=== PATIENT | male | born 1935 | race Caucasian/White ===

== ENCOUNTER 2025-03-16 08:49 | Emergency (ER) | payer MEDICARE, SELFPAY ==
--- NOTE | ~2025-03-16 | XR_ITS ---
XR lumbar spine 2-3V 03/16/2025 10:00 Indication: Status post fall. Hip pain. Procedure: 4 views lumbar spine Comparison: No prior studies for comparison. Findings: There is levoscoliosis. There are compression fractures of T8, T10, L1, L3 and L5, all like ly chronic. There is disc narrowing at L2-3 through L5-S1. There is multilevel facet hypertrophy most severe at L4-5 and L5-S1. There is levoscoliosis. Sacral foramen are symmetric. 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 2: Severe lumbar spondylosis with levoscoliosis. Reviewed, dictated and finalized at location B. Impression: 1: Multiple compression fractures of the lower thoracic and lumbar spine, likel y chronic. 2: Severe lumbar spondylosis with levoscoliosis.
--- NOTE | ~2025-03-16 | XR_ITS ---
XR hip LT 2V w AP pelvis 03/16/2025 10:00 Indication: Left hip pain Procedure: 3 views left hip Comparison: No prior studies for comparison. Findings: There is moderate osteoarthritis of the hips. Pelvic rings intact. There is lower lumbar sp ondylosis. No acute fracture or traumatic malalignment. Osteopenia. Sacral foramen are symmetric. Impression: 1: Moderate osteoarthritis of the hips. 2: No acute fracture. Reviewed, dictated and finalized at location B. Impression: 1: Moderate osteoarthritis of the hips. 2: No acute fracture.
--- OUTSIDE RECORDS SUMMARY | 2025-03-16 08:57 | XMS_ITS | Referral Summary ---
Author Organization [facility] Address [address] [place] [id number] Care Team Providers Care Histopathology Technician Name Role Phone Magdalena Mrash Primary Care Provider [phone] Williams Alexandra MD Unavailable [phone] Allergies No known active allergies Medications aspirin 81 mg enteric coated tablet Take 1 tablet (81 mg total) by mouth daily Active fexofenadine (NESHA) 60 mg tablet Take 1 tablet (60 mg total) by mouth daily 02/01/2017 Active omega-3 fatty acids-fish oil 300-1,000 mg capsule Take by mouth Active lisinopriL (PRINIVIL,ZESTR IL) 10 mg tablet Take 1 tablet (10 mg total) by mouth daily 12/29/2022 Active polydextrose (Childrens Fiber Gummy Bear) 1.5 gram tablet,chewable Take by mouth daily 06/14/2022 Active multivitamin-Ca -iron-minerals tablet Take 1 tablet by mouth daily 01/16/2015 Active tamsulosin (FLOMAX) 0.4 mg extended release capsule TAKE 1 CAPSULE BY MOUTH EVERYDAY AT BEDTIME 12/29/2022 Active coenzyme Q10 10 mg capsule Take by mouth daily Active cyanocobalamin (Vitamin B-12) 1,000 mcg tablet Take 0.5 tablets (500 mcg total) by mouth daily Active cholecalciferol (VITAMIN D-3) 2000 unit capsule Take 1 capsule (2,000 Units total) by mouth daily 06/14/2022 Active atorvastatin (LIPITOR) 40 mg tablet TAKE 1 TABLET BY MOUTH EVERY DAY 90 tablet 1 09/24/2024 Active Active Problems Problem Noted Date Diagnosed Date 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 03/11/2023 Essential hypertension 03/11/2023 Hyperlipidemia 03/11/2023 Social History Tobacco Use Types Packs/Day Years Used Date Smoking Tobacco: Former Cigarettes Q uit: 1965 Smokeless Tobacco: Never Tobacco Cessation:Counseling Given: Not Answered Personal Safety Answer Date Recorded Getting School Help Needed Not on file 11/27 Sex and Gender Information Value Date Recorded Sex Assigned at Not on file 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 Gender Identity Not on file Sexual Orientation Not on file Last Filed Vital Signs Vital Sign Reading Time Taken Comments Blood Pressure 108/67 05/18/2024 1:36 PM CDT Pulse 76 05/18/2024 1:36 PM CDT Temperature 36.5 C (97.7 F) 05/18/2024 1:36 PM CDT Respiratory Rate 18 05/18/2024 1:36 PM CDT Oxygen Saturation 96% 05/18/2024 1:36 PM CDT Inhaled Oxygen Concentration - - Weight 85.3 kg (188 lb) 05/18/2024 1:36 PM CDT Height 175.3 cm (5' 9) 03/09/2024 1:03 PM CDT Body Mass Index 27.76 03/09/2024 1:03 PM CDT Plan of Treatment Not on file Insurance MEDICARE [facility] SUPPLEMENT ZULLY DUGGAN [id number] [facility] MCR SUPPLEMENT URBANZULLY [id number] MEDICARE [facility] MCR SUPPLEMENT Care Teams Histopathology Technician Relationship Specialty Start Date End Date Magdalena Marsh PA PCP - General Physician Wind Plant Manager 01/20/23 Williams Alexandra MD [address] [place] [address] Referring Physician Medical Oncology 05/04/24
--- OUTSIDE RECORDS SUMMARY | 2025-03-16 08:57 | XMS_ITS | Encounter Summary ---
Author Organization [facility] Address [address] [place] [address] Phone Care Team Providers Care Cash Shortage Investigator Name Role Phone Magdalena Marsh [facility] Primary Care Provider [phone] Wililams Alexandra MD Unavailable [phone] Katie Casas RN Unavailable Unavailable Gladys Javier RN Unavailable Unavailable Encounter Details Date Type Department Care Team (Late Contact Info) Description 06/08/2024 Telephone [facility] [address] [phone] Williams Alexandra MD [address] [place] [phone] Social History Tobacco Use Types Packs/Day Years Used Date Smoking Tobacco: Never Smokeless Tobacco: Never Alcohol Use Standard Drinks/Week Comments Not Asked 0 (1 standard drink = 0.6 oz pur e alcohol) PHQ-2 Answer Date Recorded Total Score - Questions 1-9 0 12/01 Sex and Gender Information Value Date Recorded Sex Assigned at Not on file 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 Gender Identity Not on file Sexual Orientation Not on file documented as of this encounter Plan of Treatment Upcoming Encounters Date Type Department Care Team (Late Contact Info) Description 04/11/2025 12:00 PM CDT Clinical Support [facility] [id number] [address] 05/09/2025 1:30 PM CDT Office Visit [facility] [id number] [phone] Williams Alexandra MD [address] [place] [phone] documented as of this encounter Visit Diagnoses Not on filedocumented in this encounter Additional Health Concerns Assessment Noted Time PHQ-9 Depression Total Score: 0 12/19/19 21 1:17 PM CDT documented as of this encounter Care Teams Cash Shortage Investigator Relationship Specialty [place] [address] [place] [address] PCP - General Physician Timing Inspector 01/05/23 Williams Alexandra MD [address] [place] [address] Consulting Physician Oncology 01/05/23 Katie Casas, RN ND Oncology Nurse Navigator Oncology 05/23/24 Gladys Javier, NELA ND Oncology Nurse Navigator Oncology 08/31/24 documented as of this encounter
--- OUTSIDE RECORDS SUMMARY | 2025-03-16 08:57 | XMS_ITS | Clinical Summary ---
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 Essential hypertension 03/11/2023 Hyperlipidemia 03/11/2023 Surgical History Surgery Date Site/Laterality Comments CATARACT EXTRACTION, BILATERAL Medical History Medical History Date Comments Hyperlipidemia Family History Medical History Relation Name Comments Cancer Brother 1 Prostate cancer Brother 2 Heart failure Father Stroke Mother Relation Name Status Comments Brother 1 Brother 2 Alive Father Mother Social History Tobacco Use Types Packs/Day Years Used Date Smoking Tobacco: Former Cigarettes Q uit: 1965 Smokeless Tobacco: Never Tobacco Cessation:Counseling Given: Not Answered Personal Safety Answer Date Recorded Getting School Help Needed Not on file 11/27 Sex and Gender Information Value Date Recorded Sex Assigned at Not on file 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 Gender Identity Not on file Sexual Orientation Not on file Obstetrics History Last Filed Vital Signs Vital Sign Reading [...] 03/09/2024 1:03 PM CDT Plan of Treatment Health Maintenance Due Date Last Done Comments Depression Screening 1935 Fall Risk Assessment 1935 Hepatitis B Screening 1953 Well Visit 65+ 2002 DTaP/Tdap/Td Vaccine (1 - Tdap) 01/23/2021 Pneumococcal vaccine 65+ (2 of 2 - PCV) 03/05/2022 03/05/2021 Covid-19 Vaccine (2023-2 5 season) 2024 08/17/2022, 02/06/2022, 07/28/2021, Additional history exists Influenza Vaccine (Season Ended) 2025 08/04/2022, 07/18/2021, 06/27/2020, Additional history exists Zoster Vaccine Completed 11/21/2019, 07/28/2019 Insurance MEDICARE [facility] SUPPLEMENT MEDICARE [facility] SUPPLEMENT ZULLY DUGGAN [id number] MEDICARE [facility] Address: [address] [address] [place] [address] [facility] SUPPLEMENT ZULLY DUGGAN [id number] Care Teams Tire Vulcanizer Relationship Specialty Start Date End Date Magdalena Marsh PA PCP - General Physician Behavioral Instructor 01/20/23 Williams Alexandra MD [address] [place] [phone] Referring Physician Medical Oncology 05/04/24
--- OUTSIDE RECORDS SUMMARY | 2025-03-16 08:57 | XMS_ITS ---
Author Organization [facility] Address [address] [place] [address] Phone Care Team Providers Care Health And Physical Education Teacher Name Role Phone Magdalena Marsh PAC Primary Care Provider Williams Alexandra MD Unavailable [phone] Katie Casas RN Unavailable Unavailable Gladys Javier RN Unavailable Unavailable Active Problems Patient Care Coordination No te Formatting of this note migh t be different from the original. 05/17/24 PCM CONSENT CARE PLAN LAST UPDATED: 02/20/2025 CARE PLAN LAST DELIVERED: 09-13-24, 02/20/25 PT DECLINED COPY For additional billing time breakdown, see [employer] auditing report. 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
--- OUTSIDE RECORDS SUMMARY | 2025-03-16 08:57 | XMS_ITS | Clinical Summary ---
Author Organization [facility] Address [address] [place] [address] Phone Care Team Providers Care Packer Denture Name Role Phone Magdalena Marsh Primary Care Provider [phone] Williams Alexandra MD Unavailable [phone] Katie Casas RN Unavailable Unavailable Gladys Javier RN Unavailable Unavailable Allergies No known active allergies Medications Cyanocobalamin (VITAMIN B 12 PO) Take 1,000 mg by mouth. Active Coenzyme Q10 (COQ-10) 100 MG Capsule Take by mouth. Activ e Aspirin 81 MG Tablet Take 81 mg by mouth daily. Active Multiple Vitamins-Mineral s (MULTIVITAMIN PO) Take by mouth. Activ e fexofenadine (NESHA) 60 MG Tablet Take 1 Tablet by mouth. 7 Active tamsulosin (FLOMAX) 0.4 MG Capsule TAKE 1 CAPSULE BY MOUTH EVERYDAY AT BEDTIME 3 Active atorvastatin (LIPITOR) 40 MG Tablet Take 40 mg by mouth daily. Active ondansetron (ZOFRAN) 4 MG TabletIndication s:NK/T-cell lymphoma, unspecified type (HCC) Take 1 Tablet by mouth every 6 hours as needed for Nausea - 1st line. 30 Tablet 3 4 Active Additional Information Patient not taking.Reported on 03/07/2025 prochlorperazine (COMPAZINE) 10 MG TabletIndication s:NK/T-cell lymphoma, unspecified type (HCC) Take 1 Tablet by mouth every 4 hours as needed for Nausea - 2nd line. 30 Tablet 3 4 Active Additional Information Patient not taking.Reported on 03/07/2025 cyclophosphamide (CYTOXAN) 50 MG CapsuleIndicatio ns:NK/T-cell lymphoma, unspecified type (HCC) Take 2 Capsules by mouth every morning Swallow capsules whole. 60 Capsule 5 5 Active albuterol 108 (90 Base) MCG/ACT Aerosol Solution take 2 Puffs by inhalation. 5 Active multi-vitamins (Multi-Vitamin) Tablet Take 1 Tablet by mouth. 5 Active fish oil-omega-3 fatty acids 1000 MG Capsule Take 1,000 mg by mouth. Active acetaminophen (TYLENOL) 650 MG Tablet Controlled Release Take 650 mg by mouth every 6 hours as needed. Active Active Problems Patient Care Coordination No te Formatting of this note migh t be different from the original. 05/17/24 PCM CONSENT CARE PLAN LAST UPDATED: 02/20/2025 CARE PLAN LAST DELIVERED: 09-13-24, 02/20/25 PT DECLINED COPY For additional billing time breakdown, see [facility] auditing report. 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 Polycythemia 09/11/2015 Encounters Date Type Department Care Team Description 03/14/2025 12:45 PM CDT Clinical Support [facility] [address] [phone] Nurse, Cc [place] NK/T-cell lymphoma, unspecified type (HCC) (Primary Dx) 03/14/2025 Travel 03/07/2025 1:30 PM CDT Lab [facility] [address] [facility] [address] [phone] Nurse, Cc [place] Polycythemia (Primary Dx) 03/07/2025 1:00 PM CDT Office Visit [facility] [address] [facility] [address] [phone] Williams Alexandra MD Polycythemia (Primary Dx); Eosinophilia, unspecified type 03/07/2025 Travel 03/04/2025 3:15 PM CDT Clinical Support [facility] [address] [phone] Navigator, Annalise Ramírez Nurse NK/T-cell lymphoma, unspecified type (HCC) (Primary Dx) 02/20/2025 9:00 AM CDT Care Management [facility] [address] [phone] Navigator, Annalise Ramírez Nurse Care Management (WELLNESS F/U & CAREPLAN REVIEW) 02/14/2025 11:00 AM CDT Clinical Support [facility] [address] [phone] Nurse, Cc [place] NK/T-cell lymphoma, unspecified type (HCC) (Primary Dx) 02/14/2025 Travel 02/11/2025 Telephone [facility] [address] [phone] Williams Alexandra MD 01/31/2025 2:30 PM CDT Clinical Support [facility] [address] [phone] Navigator, Annalise Ramírez Nurse NK/T-cell lymphoma, unspecified type (HCC) (Primary Dx) 01/29/2025 9:00 AM CDT Care Management [facility] [address] [phone] Navigator, Cc [place] Nurse Care Management (WELLNESS F/U) 01/15/2025 8:45 AM CDT Care Management [facility] [address] [phone] Navigator, Cc [place] Nurse Care Management (WELLNESS F/U & CAREPLAN REVIEW) 01/10/2025 1:15 PM CDT Clinical Support [facility] [address] [place] [address] NK/T-cell lymphoma, unspecified type (HCC) (Primary Dx) 01/10/2025 1:00 PM CDT Office Visit [facility] [address] [place] [address] Williams Alexandra MD NK/T-cell lymphoma, unspecified type (HCC) (Primary Dx) 01/10/2025 Travel 01/03/2025 Telephone [facility] [address] [phone] Williams Alexandra MD [facility] Call / Skin cancer treatment 01/01/2025 3:30 PM CDT Clinical Support [facility] [address] [phone] Navigator, Cc [place] Nurse NK/T-cell lymphoma, unspecified type (HCC) (Primary Dx) 12/31/2024 11:00 AM CDT Care Management [facility] [address] [phone] Navigator, Cc [place] Nurse Care Management (WELLNESS F/U) 12/26/2024 8:15 AM CDT Care Management [facility] [address] [phone] Navigator, Cc [place] Nurse Care Management (WELLNESS F/U) 12/14/2024 9:00 AM CDT Clinical Support [facility] [address] [facility] [address] [place] [phone] Nurse, Annalise Vinson NK/T-cell lymphoma, unspecified type (HCC) (Primary Dx) from Last 3 Months Immunizations Immunization Administration Dates Next Due Covid-19, Mrna, Lnp-s, Pf, 1 00 Mcg Or 50 Mcg Dose (MODERNA) 10/28/2020,09/30/2020 Influenza Vaccine 07/10/2013 Influenza, High-dose, Quadrivalent 07/28/2019 Influenza, Recombinant, Quadrivalent,injectable, Pf 06/27/2020 Influenza, Seasonal, Injectable, Undefined 07/12 Influenza, high-dose, trivalent, PF 07/28/2019 Zoster Vaccine Recombinant 11/21/2019,07/28/2019 Family History Medical History Relation Name Comments Cancer Brother lung Congenital Heart Disease Father Congestive Heart Failure Father Stroke Mother Elevated Lipids Other Relation Name Status Comments Brother Father Mother Other Social History Tobacco Use Types Packs/Day Years Used Date Smoking Tobacco: Never Smokeless Tobacco: Never Tobacco Cessation:Counseling Given: Not Answered Alcohol Use Standard Drinks/Week Comments Not Asked 0 (1 standard drink = 0.6 oz pur e alcohol) PHQ-2 Answer Date Recorded Total Score - Questions 1-9 0 12/01 Sex and Gender Information Value Date Recorded Sex Assigned at Not on file 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 Gender Identity Not on file Sexual Orientation Not on file Last Filed Vital Signs Vital Sign Reading Time Taken Comments Blood Pressure 130/68 03/07/2025 12:58 PM CDT Pulse 86 03/07/2025 12:58 PM CDT Temperature 36.7 C (98 F) 03/07/2025 12:58 PM CDT Respiratory Rate 16 03/07/2025 12:58 PM CDT Oxygen Saturation 97% 03/07/2025 12:58 PM CDT Inhaled Oxygen Concentration - - Weight 81.4 kg (179 lb 6.4 oz) 03/07/2025 12:58 PM CDT Height 175.3 cm (5' 9) 03/07/2025 12:58 PM CDT Body Mass Index 26.49 03/07/2025 12:58 PM CDT Plan of Treatment Upcoming Encounters Date Type Department Care Team (Late st Contact Info) Description 04/11/2025 12:00 PM CDT Clinical Support [facility] [address] [phone] 05/09/2025 1:30 PM CDT Office Visit [facility] [address] [place] [address] Williams Alexandra MD [address] [place] [address] Health Maintenance Due Date Last Done Comments Hepatitis C Virus (HCV) Screening 1935 TdaP Immunization 1935 SARS-COV-2 Immunization (8 - Moderna risk season) 2025 08/22/2024, 09/21/2023, 08/17/2022, Additional history exists Influenza Immunization (Season Ended) 2025 07/26/2023, 08/04/2022, 07/18/2021, Additional history exists Zoster Immunization Completed 11/21/2019, 9 DTaP/Tdap/Td Immunization Discontinued 01/22/2021 Pneumococcal Immunization (50+ years) Completed 06/29/2024, 07/26/2023, 03/05/2021 Pneumococcal Immunization Combined Discontinued 06/29/2024, 07/26/2023, 03/05/2021 Respiratory Syncytial Virus (RSV) Immunization (Adult) Completed 06/29/2024 Hepatitis B Immunization Aged Out No longer eligible based on patient's age to complete this topic Human Papillomavirus (HPV) Immunization Aged Out No longer eligible based on patient's age to complete this topic Meningococcal Immunization (ACWY) Aged Out No longer eligible based on patient's age to complete this topic Rotavirus Immunization Aged Out No lo nger eligible based on patient's age to complete this topic Procedures Procedure Name Priority Date/Time Associated Diagnosis Comments CMP (COMPREHENSIVE METABOLIC PANEL) Routine 02/14/2025 9:15 AM CDT NK/T-cell lymphoma, unspecified type (HCC) COMPLETE BLOOD COUNT (CBC) WITH DIFF Routine 02/14/2025 9:15 AM CDT NK/T-cell lymphoma, unspecified type (HCC) CCS-ACUTE LEUKEMIA PNL (NON-[place]) [place] B504-2 Routine 01/10/2025 3:57 PM CDT LACTATE DEHYDROGENASE (LD) Routine 01/10/2025 3:57 PM CDT NK/T-cell lymphoma, unspecified type (HCC) FOLIC ACID (FOLATE) Routine 01/10/2025 3 :57 PM CDT NK/T-cell lymphoma, unspecified type (HCC) FERRITIN Routine 01/10/2025 3:57 PM CDT NK/T-cell lymphoma, unspecified type (HCC) IRON W/ IRON BINDING CAPACITY [place] Routine 01/10/2025 3:57 PM CDT NK/T-cell lymphoma, unspecified type (HCC) RETICULOCYTE COUNT (RETIC) Routine 01/10/2025 3:57 PM CDT NK/T-cell lymphoma, unspecified type (HCC) VITAMIN B12 Routine 01/10/2025 3:57 PM CDT NK/T-cell lymphoma, unspecified type (HCC) COMPLETE BLOOD COUNT (CBC) WITH DIFF Routine 01/10/2025 3:57 PM CDT NK/T-cell lymphoma, unspecified type (HCC) CMP (COMPREHENSIVE METABOLIC PANEL) Routine 01/10/2025 3:57 PM CDT NK/T-cell lymphoma, unspecified type (HCC) from Last 3 Months Results * (ABNORMAL) CMP (COMPREHENSIVE METABOLIC PANEL) (02/14/2025 9:15 AM CDT) Only the most recent of2 resultswithin the time period is included. Glucose 105 70 - 105 mg/dL [facility] Blood Urea Nitrogen 15 7 - 25 mg/dL [facility] Creatinine 0.7 0.7 - 1.3 mg/dL [facility] Sodium 139 136 - 145 mEq/L [facility] Potassium 3.7 3.5 - 5.1 mEq/L [facility] Chloride 110(H) 98 - 107 mEq/L [facility] Bicarbonate 26 21 - 31 mEq/L [facility] Total Bilirubin 0.5 0.3 - 1.0 mg/dL [facility] Alk. Phosphatase 71 34 - 104 U/L [facility] Aspartate Aminotransferase 16 13 - 39 U/L [facility] Alanine Aminotransferase 13 7 - 52 U/L [facility] Total Protein 6.2(L) 6.4 - 8.9 g/dL [facility] Albumin 4.0 3.5 - 5.7 g/dL [facility] Calcium 9.4 8.6 - 10.3 mg/dL [facility] Anion Gap 6.7(L) 7.0 - 15.0 mEq/L [facility] Globulin 2.2 2.0 - 3.5 g/dL [facility] EGFR 89 >60 ml/min/1. 73m2 [facility] RN WOUND [facility] Comment: This eGFR is calculated using 2020 CKD-EPI Creatinine equation without race modifier based on the NKF-ASN task force recommendations Equation: dROP=128*min(SCr/k,1)a*max(SCr/k,1)-1.200*0.9938Age*1.012 (if female), where SCr is serum creatinine, k is 0.7 for females and 0.9 for males, and a is -0.241 for females and -0.302 for males Blood 02/14/2025 9:15 AM CDT Narrative [facility] - 02/15/2025 9:41 AM CDT Release to patient->Immediate IS THE PATIENT REQUIRED TO BE FASTING FOR 8 HOURS?->No Williams Alexandra MD CHEMISTRY ORDERABLES Final Result [facility] RN WOUND [facility] [place] [address], [place] [phone] * (ABNORMAL) COMPLETE BLOOD COUNT (CBC) WITH DIFF (02/14/2025 9:15 AM CDT) Only the most recent of2 resultswithin the time period is included. WBC 2.9(L) 4.0 - 10.0 10*3/uL [facility] RN [facility] HGB 12.1(L) 13.7 - 17.5 g/dL [facility] HCT 35.4(L) 40.1 - 51.0 % [facility] PLT 86(L) 163 - 369 10*3/uL [facility] MPV 11.5 9.4 - 12.4 fL [facility] RBC 2.98(L) 4.63 - 6.08 10*6/uL [facility] MCV 119(H) 79 - 95 fL [facility] MCH 40.6(H) 25.6 - 32.2 pg [facility] RN [facility] MCHC 34.2 32.2 - 36.5 g/dL [facility] RDW 16.2(H) 11.6 - 14.4 % [facility] RN [facility] Absolute Neutrophil Count 1,910 cells/uL [facility] ER SPECIALISTS [facility] Absolute Seg Count 1,910 1,440 - 6,600 cells/uL [facility] Absolute Lymph Count 285(L) 760 - 4,000 cells/uL [facility] Absolute [place] Count 428 160 - 1,200 cells/uL [facility] Absolute Eos Count 57 0 - 300 cells/uL [facility] Absolute Baso Count 114(H) 0 - 100 cells/uL [facility] Segmented Neutrophils 67(H) 36 - 66 % [facility] Lymphocytes 10(L) 19 - 40 % [facility]ER C ENTER [facility] Monocytes 15(H) 4 - 12 % CANCER SP TER SPECIALISTS [facility] Eosinophils 2 0 - 3 % [facility] C ENTER [facility]ISTS [facility] Basophils 4(H) 0 - 1 % [facility] SP TER [facility]ISTS [facility] Metamyelocytes 1 0 - 2 % CANCE R RN WOUND [facility] Myelocytes 1 0 - 2 % [facility] CE NTER SPECIALISTS [facility] WBC Estimate Low [facility]ER RN WOUND [facility] Platelet Estimate Low CA NCER RN WOUND OF [facility] RBC Morphology Abnormal [facility] R RN WOUND OF [facility] Macrocytosis 3+ CANCER RN WOUND OF [facility] Polychromasia 1+ CANCER RN WOUND OF [facility] Anisocytosis 1+ CANCER RN WOUND OF [facility] Poikilocytosis 1+ CANCE R RN WOUND OF [facility] Ovalocytes 1+ CANCER CE NTER SPECIALISTS [facility] Blood 02/14/2025 9:15 AM CDT Narrative [facility] RN WOUND [facility] - 02/15/2025 10:03 AM CDT Release to patient->Immediate us Williams Alexandra MD HEMATOLOGY ORDERABLES Final Result Performing Organization Address City/[facility] Co de Phone Number CANCER RN WOUND [facility] [address] [place] [address], [place] [phone] * (ABNORMAL) IRON W/ IRON BINDING CAPACITY [place] (01/10/2025 3:57 PM CDT) Pathologist [facility] IRON 49(L) 50 - 212 ug/dL [facility] RN WOUND [facility] UIBC 200 155 - 355 ug/dL [facility] RN WOUND [facility] TIBC 249(L) 261 - 478 ug/dl [facility] RN WOUND [facility] % Saturation 20 20 - 50 % [facility] RN WOUND [facility] 01/10/2025 3:57 PM CDT Narrative [facility] RN WOUND [facility] - 01/11/2025 9:14 AM CDT Release to patient->Immediate us Williams Alexandra MD LAB SEND OUTS Final Resul t CANCER RN WOUND [facility] [address] [place] [address], [place] [phone] * CCS-ACUTE LEUKEMIA PNL (NON-[place]) [place] B504-2 (01/10/2025 3:57 PM CDT) ACUTE LEUKEMIA FLOW PC Negative [facility] RN WOUND [facility] Comment: INTERPRETATION PERIPHERAL BLOOD: - Flow cytometric analysis does not show significant numbers of circulating blasts or an abnormal lymphoid or myeloid population. Lymphopenia is present. - No increase in NK cells is present, 0.15% of events (0.0039 k/ul). See comments. COMMENT The findings are similar to most recent prior. Correlation with other clinical and laboratory information is recommended. 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 There are no circulating blasts identified. Neutrophilsare relatively increased 90.72%) and do not display an aberrant phenotype. The orthogonal side scatter is normal. No significant number of CD56+ or CD10-/CD16- neutrophils is noted. Monocytes 3.15%) appear mature (CD14+/CD64+) and do not display overt phenotypic atypia. B-cells 0.13%) are polytypic. T-cells (3.52%) show no deletion or abnormal dim expression of currie-T-cell antigens on significant subset of cells. The CD7- T-cells are within normal range (<15%). The CD4:CD8 ratio is 1.26. The T-LGL cells comprise 0.96%. The NK cells are not increased, 0.15% DISCLAIMER: Antibodies Analyzed: CD19,CD20,CD22,CD10,CD11c,CD23,FMC7,[place],Lambda,CD2,CD3,CD4,CD5, CD7,CD8,CD56,CD57,CD11b,CD13,CD14,CD16,CD33,CD64,CD34,CD38,CD117, HLA-DR,CD45 - The technical component of Flow Cytometry was performed at [facility] [address] [place] [id number]. These tests were developed and their performance characteristics were determined by [facility]. They may not be cleared or approved by the U.S. Food and Drug Administration. The FDA has determined that such clearance or approval is not necessary. These results may be used for clinical, investigational or for research purposes, and should be interpreted with other relevant clinicopathologic data. FOOTNOTE: * See prior cases [id number] to [id number] ELECTRONIC SIGNATURE: Nathalia Toledo M.D. Hematopathologist, ex. [phone] This report was electronically signed. 01/10/2025 3:[address] [facility] - 01/14/2025 1:45 PM CDT Testing performed at: [employer]. [address] [place] [address], Skin Care Technician: Dr. Paul Montiel M.D.; Merged with [facility] Accn#:[id number] us Williams Alexandra MD PATHOLOGY/CYTOLOGY ORDERABL ES Final Result Performing Organization Address [facility] [place] [address], * VITAMIN B12 (01/10/2025 3:57 PM CDT) Pathologist [facility] Vitamin B12 380 180 - 914 pg/mL [facility] Blood 01/10/2025 3:[address] [facility] - 01/11/2025 2:35 PM CDT Release to patient->Immediate IS THE PATIENT REQUIRED TO BE FASTING FOR 8 HOURS?->No us Williams Alexandra MD CHEMISTRY ORDERABLES Final Result Performing Organization Address [facility] [place] [address], [place] [phone] * (ABNORMAL) RETICULOCYTE COUNT (RETIC) (01/10/2025 3:57 PM CDT) Pathologist [facility] Reticulocyte count 1.40 0.51 - 1.81 % [facility] RET-He 44.30(H) 28.20 - 36.60 pg [facility] Comment: RET-He is a direct assessment of incorporation of iron into erythrocyte hemoglobin. It provides an indirect measure of the iron available for new erythropoiesis over past 2-4 days. Blood 01/10/2025 3:57 PM CDT us Williams Alexandra MD HEMATOLOGY ORDERABLES Final Result Performing Organization Address [facility] Co de Phone Number CANCER RN WOUND [facility] [address] [place] [address], [place] [phone] * (ABNORMAL) LACTATE DEHYDROGENASE (LD) (01/10/2025 3:57 PM CDT) LDH 136(L) 140 - 271 U/L [facility] RN WOUND [facility] Blood 01/10/2025 3:57 PM CDT Narrative [facility] - 01/11/2025 9:14 AM CDT Release to patient->Immediate us Williams Alexandra MD CHEMISTRY ORDERABLES Final Result Performing Organization Address [facility] Co de Phone Number CANCER RN WOUND [facility] [place] [address], [place] [phone] * FOLIC ACID (FOLATE) (01/10/2025 3:57 PM CDT) Folate >20.00 >=5.90 ng/mL [facility] Blood 01/10/2025 3:57 PM CDT Narrative [facility] - 01/11/2025 2:35 PM CDT Release to patient->Immediate us Williams Alexandra MD CHEMISTRY ORDERABLES Final Result Performing Organization Address [facility] Co de Phone Number [facility]CER RN WOUND [facility] [address] [place] [address], [place] [phone] * (ABNORMAL) FERRITIN (01/10/2025 3:57 PM CDT) Ferritin 552(H) 24 - 336 ng/mL [facility] RN WOUND [facility] Blood 01/10/2025 3:57 PM CDT Narrative [facility]CER RN WOUND OF [facility] - 01/11/2025 2:35 PM CDT Release to patient->Immediate Williams Alexandra MD CHEMISTRY ORDERABLES Final Result [facility] RN WOUND [facility] [address] [place] [address], from Last 3 Months Insurance MEDICARE [facility] [employer] [id number] Advance Directives Documents on File Type Date Recorded 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
--- OUTSIDE RECORDS SUMMARY | 2025-03-16 08:57 | XMS_ITS | Encounter Summary ---
Author Organization [facility] Address [address] [place] [address] Phone Care Team Providers Care Mine Wirer Name Role Phone Magdalena Marsh [facility] Primary Care Provider [phone] Williams Alexandra MD Unavailable [phone] Katie Casas RN Unavailable Unavailable Gladys Javier RN Unavailable Unavailable Encounter Details Date Type Department Care Team (Late Contact Info) Description 06/19/2024 Telephone [facility] [address] [phone] Williams Alexandra MD [address] [place] [phone] Social History Tobacco Use Types Packs/Day Years Used Date Smoking Tobacco: Never Smokeless Tobacco: Never Alcohol Use Standard Drinks/Week Comments Not Asked 0 (1 standard drink = 0.6 oz pur e alcohol) PHQ-2 Answer Date Recorded Total Score - Questions 1-9 0 12/01 Sex and Gender Information Value Date Recorded Sex Assigned at Not on file 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 Gender Identity Not on file Sexual Orientation Not on file documented as of this encounter Plan of Treatment Upcoming Encounters Date Type Department Care Team (Late Contact Info) Description 04/11/2025 12:00 PM CDT Clinical Support [facility] [id number] [address] 05/09/2025 1:30 PM CDT Office Visit [facility] [id number] [address] Williams Alexandra MD [address] [place] [phone] documented as of this encounter Visit Diagnoses Not on filedocumented in this encounter Additional Health Concerns Assessment Noted Time PHQ-9 Depression Total Score: 0 12/19/19 21 1:17 PM CDT documented as of this encounter Care Teams Mine Wirer Relationship Specialty [place] [address] [place] [address] PCP - General Physician Shade Bander 01/05/23 Williams Alexandra MD [address] [place] [address] Consulting Physician Oncology 01/05/23 Katie Casas, RN [place] Oncology Nurse Navigator Oncology 05/23/24 Gladys Javier, NELA [place] Oncology Nurse Navigator Oncology 08/31/24 documented as of this encounter
--- OUTSIDE RECORDS SUMMARY | 2025-03-16 08:57 | XMS_ITS | Encounter Summary ---
Author Organization [facility] Address [address] [place] [address] Phone Care Team Providers Care Technical Account Manager Name Role Phone Magdalena Marsh [facility] Primary Care Provider [phone] Williams Alexandra MD Unavailable [phone] Katie Casas RN Unavailable Unavailable Gladys Javier RN Unavailable Unavailable Encounter Details Date Type Department Care Team (Late Contact Info) Description 04/20/2024 Telephone [facility] [address] [phone] Williams Alexandra MD [address] [place] [phone] Social History Tobacco Use Types Packs/Day Years Used Date Smoking Tobacco: Never Smokeless Tobacco: Never Alcohol Use Standard Drinks/Week Comments Not Asked 0 (1 standard drink = 0.6 oz pur e alcohol) PHQ-2 Answer Date Recorded Total Score - Questions 1-9 0 12/01 Sex and Gender Information Value Date Recorded Sex Assigned at Not on file 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 Gender Identity Not on file Sexual Orientation Not on file documented as of this encounter Plan of Treatment Upcoming Encounters Date Type Department Care Team (Late Contact Info) Description 04/11/2025 12:00 PM CDT Clinical Support [facility] [id number] [address] 05/09/2025 1:30 PM CDT Office Visit [facility] [address] [address] Williams Alexandra MD [address] [place] [phone] documented as of this encounter Visit Diagnoses Not on filedocumented in this encounter Additional Health Concerns Assessment Noted Time PHQ-9 Depression Total Score: 0 12/19/19 21 1:17 PM CDT documented as of this encounter Care Teams Technical Account Manager Relationship Specialty [place] [address] [place] [address] PCP - General Physician Motor Installer 01/05/23 Williams Alexandra MD [address] [place] [address] Consulting Physician Oncology 01/05/23 Katie Casas, RN [place] Oncology Nurse Navigator Oncology 05/23/24 Gladys Javier, NELA [place] Oncology Nurse Navigator Oncology 08/31/24 documented as of this encounter
[2025-03-16 09:02] VITALS: BP 118/87; PULSE 97; RESP 16; TEMP 36.7; O2SAT 91
--- NOTE | 2025-03-16 09:34 | ED_ITS ---
HPI - Back Pain/Injury General Chief Complaint: Back Pain/Injury Stated Complaint: Back Pain / Fall Time Seen by Provider: 03/16/25 08:51 Source: patient Mode of arrival: ambulatory Limitations: no limitations History of Present Illness HPI Narrative: Patient is 89-year-old male who presents to the clinic with his daughter for a fall from ground level yesterday around 3:00 p.m. Lost his balance while hanging clothes up in his closet and fell back on his left hip and coccyx. Denies hitting his head or LOC. Reports pain in his lumbar spine consistent, nonradiating and pain is 6/10 especially when he leans forward to get out of a chair and improves when lying down in bed. Denies any numbness, tingling, bowel or bladder incontinence or lower extremity weakness. History of compression fractures. Has a ankle brace on his left ankle. Related Data Home Medications ?Medication ?Instructions ?Recorded ?Confirmed ?Last Taken ?Type atorvastatin 40 mg tablet mg 03/16/25 Unknown History cyclophosphamide 50 mg capsule mg PO 03/16/25 Unknown History tamsulosin 0.4 mg capsule mg PO 03/16/25 Unknown History Allergies Allergy/AdvReac Type Severity Reaction Status Date / Time No Known Allergies Allergy Verified 03/16/25 08:59 Review of Systems Review of Systems: All systems reviewed & are unremarkable except as noted in HPI and below Constitutional: Constitutional: Denies body ache(s), Denies chills, Denies fatigue, Denies fever(s), Denies headache(s), Denies malaise and Denies weakness Eyes: Eyes: Denies blurry vision, Denies irritation and Denies loss of vision ENT: Denies otalgia, Denies headache(s), Denies nasal discharge, Denies sinus pain and Denies sore throat Cardiovascular: Cardiovascular: Denies chest pain, Denies irregular heart rhythm and Denies dyspnea Respiratory: Respiratory: Denies dyspnea Gastrointestinal: Gastrointestinal: Denies abdominal pain, Denies melena, Denies hematochezia, Denies diarrhea, Denies nausea and Denies vomiting Musculoskeletal: Musculoskeletal: Reports back pain, Denies myalgias and Denies arthralgias Integumentary/Breasts: Skin/Breast: Denies pruritus and Denies rash Neurologic: Denies headache(s), Denies loss of vision and Denies weakness Psychiatric: Psychiatric: Reports no additional psychiatric complaints Endocrine: Endocrine: Denies fatigue PMFSH Comments At time of signature, agree with nursing past medical, surgical, social and family history. There is no relevant family history pertinent to the presenting complaint. Exam Const: General: cooperative, healthy appearing, comfortable, no acute distress and well nourished Nutritional Appearance: well nourished Orientation/consciousness: patient oriented x3 Limitations: no limitations HENMT: Head: normal to inspection, normocephalic and atraumatic Ears: hearing grossly normal bilaterally and external ears normal Face/Nose/Sinus: Normal external nose present, normal facial exam and face symmetric Face and sinus: normal facial exam and face symmetric Mouth: Yes lip normal Eyes: General: appearance normal, both eyes and all related structures Alignment and Position: alignment normal and position normal Periorbital: periorbital findings normal Eyelids: eyelids normal Pupils: Equal, round and reactive pupils present EOM: EOMs intact bilaterally Neck: Neck: normal visual inspection, full ROM, no lymphadenopathy and supple Chest: Chest palpation & inspection: normal inspection of the chest Resp: Effort & Inspection: normal respiratory effort and able to speak in complete sentences Auscultation: clear to auscultation bilaterally Cardio: Rate: regular rate Rhythm: regular rhythm Heart sounds: S1 normal heart sound present and S2 normal heart sound present GI: Inspection: normal to inspection Back/Spine/Pelvis: Back: no CVA tenderness, No erythema and No ecchymosis Cervical Spine: No Cervical spine tenderness Thoracic/Lumbar Spine: straight leg raise negative bilaterally, No paraspinal muscle tenderness, No thoracic spinal tenderness and lumbar spinal tenderness Pelvis: no buttock tenderness Skin: General skin exam: normal color and no rashes or lesions noted Neuro: General: patient oriented x3 and moves all extremities Cranial nerves: Yes Equal, round and reactive pupils present Cognition (Neuro): normal cognition Speech: normal speech Gait exam (Neuro): Normal gait present Motor exam (neuro): 5/5 motor strength present throughout, Normal motor muscle tone present throughout and Motor abnormalities not present Sensory Exam: normal sensation Extrem: General: normal to inspection, full ROM and no edema Left lower extremity: hip/thigh Details: tenderness Location: of the hip Location: laterally and of the proximal upper leg Location: laterally and normal ROM; no swelling, no abrasions, no ecchymosis and no deformity Psych: Appearance: grossly normal and well kempt Mental Status: mental status grossly normal Speech and movement: Normal speech and movement present Affect: normal affect Attitude: cooperative Thought process: Normal thought process present Course Course Emergency Course: Patient is aware of diagnosis, understands and agrees to treatment plan. Anticipatory guidance given. Patient agrees to follow-up as directed and is aware of reasons to seek care at the emergency department. Portions of this record may have been created with voice recognition software Level of Care: Express Care Visit Vital Signs Vital signs: Vital Signs Temperature 36.7 C 03/16/25 09:02 Pulse Rate 97 03/16/25 09:02 Respiratory Rate 16 03/16/25 09:02 Blood Pressure 118/87 03/16/25 09:02 Pulse Oximetry 91 03/16/25 09:02 Oxygen Delivery Room Air 03/16/25 09:02 Temperature 36.7 C 03/16/25 09:02 Pulse Rate 97 03/16/25 09:02 Respiratory Rate 16 03/16/25 09:02 Blood Pressure 118/87 03/16/25 09:02 Pulse Oximetry 91 03/16/25 09:02 Oxygen Delivery Room Air 03/16/25 09:02 Reviewed MDM - Back Pain/Injury MDM Narrative Medical decision making narrative: Pt well hydrated appearing, in no respiratory distress, hemodynamically stable. Recommend supportive care. The patient is stable at time of discharge the clinical impression was discussed and the patient was given the opportunity to ask questions, which were addressed as completely as possible given the information available at present. Anticipatory guidance and return to care precautions were discussed and the importance of primary care follow-up was stressed and encouraged. The patient voiced understanding of the plan, indications to return, and the need for follow-up. Exam findings show no acute concerns or changes Patient is appropriate for outpatient treatment and follow-up. Differential Diagnosis Differential diagnosis: Likely lumbar radiculopathy, sciatica, strain of lumbar region and other (Fall injury, contusion, hip fracture, and lumbar compression fractures) Imaging Data Radiologist's impression: XR hip LT 2V w AP pelvis 03/16/2025 10:00 Indication: Left hip pain Procedure: 3 views left hip Comparison: No prior studies for comparison. Findings: There is moderate osteoarthritis of the hips. Pelvic rings intact. There is lower lumbar spondylosis. No acute fracture or traumatic malalignment. Osteopenia. Sacral foramen are symmetric. Impression: 1: Moderate osteoarthritis of the hips. 2: No acute fracture. XR lumbar spine 2-3V 03/16/2025 10:00 Indication: Status post fall. Hip pain. Procedure: 4 views lumbar spine Comparison: No prior studies for comparison. Findings: There is levoscoliosis. There are compression fractures of T8, T10, L1, L3 and L5, all likely chronic. There is disc narrowing at L2-3 through L5- S1. There is multilevel facet hypertrophy most severe at L4-5 and L5-S1. There is levoscoliosis. Sacral foramen are symmetric. 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 2: Severe lumbar spondylosis with levoscoliosis. Discharge Plan Discharge Clinical Impression: Fall, Low back pain, Hip pain, left Patient Disposition: Home Condition: Stable Instructions: Fall Prevention for Older Adults (ED) Additional Instructions: X-ray show moderate osteoarthritis of hips, chronic compression fractures. No acute fractures You reported you fell.After any fall we expect you to be very sore over the next several days to 1 week. This is because your body was moved in different directions. Also sometimes people tense up during a fall. Either way, the muscles were strained after a fall and can be expected to be sore. This soreness is usually worse on the 2nd, 3rd and 4th days following a fall. Using Topicals such as biofreeze, bengay or aspercream will also help. Drink plenty of fluids and get plenty of rest to help your body heal. For pain, you may take: Tylenol 650-1000mg by mouth every 4-6 hours. Do not exceed 4000mg in 24 hours. Advil (Ibuprofen) 600 mg by mouth every 6 hours. Do not exceed 2400mg in 24 hours. 8 AM: Tylenol 11 AM: Ibuprofen 2 PM: Tylenol 5 PM: Ibuprofen 8 PM: Tylenol 11 PM: Ibuprofen 2 AM: Tylenol 5 AM: Ibuprofen Follow up with PCP in 7-10 days.Return to ER for problems. Patient Language: Monegasque Prescriptions: No Action atorvastatin 40 mg tablet tamsulosin 0.4 mg capsule PO cyclophosphamide 50 mg capsule PO Follow-up/Referrals: Jarvis,CAMRON Anderson [Primary Care Provider] - 3 Days Time of Disposition: 10:18
== END 2025-03-16 10:30 | disposition home or self-care (01) ==
PROVIDERS: Emergency Provider Nurse Practitioner Family; PCP Physician Assistant
DX: M54.50 Low back pain, unspecified (principal); M25.552 Pain in left hip; W19.XXXA Unspecified fall, initial encounter
CPT/HCPCS: 72100; 73502; 99204; G0463

== ENCOUNTER 2025-03-24 11:50 | Emergency (ER) | payer MEDICARE, SELFPAY ==
[2025-03-24 12:01] VITALS: BP 130/74; PULSE 75; RESP 18; TEMP 36.4; O2SAT 95
--- NOTE | 2025-03-24 12:01 | ED_ITS ---
HPI - Back Pain/Injury General Chief Complaint: Back Pain/Injury Stated Complaint: back pain/constipation Time Seen by Provider: 03/24/25 12:01 Source: patient, RN notes reviewed and old records reviewed Mode of arrival: ambulatory Limitations: no limitations History of Present Illness HPI Narrative: 89-year-old male presents to the [facility] with continued pain and concern for constipation. Patient states he has not had a bowel move in 4 days. Denies any nausea vomiting. Denies abdominal pain. Was able to eat breakfast without issue this morning. Presents with daughter and she states that he takes a half dose of MiraLax every day. Patient was seen and evaluated March 16 at this urgent care for a fall and back pain Patient was seen per daughter at [facility] urgent care on March 21 Has a follow-up with his primary care provider on the Related Data Home Medications ?Medication ?Instructions ?Recorded ?Confirmed ?Last Taken ?Type atorvastatin 40 mg tablet mg 03/16/25 Unknown History cyclophosphamide 50 mg capsule mg PO 03/16/25 Unknown History tamsulosin 0.4 mg capsule mg PO 03/16/25 Unknown History Allergies Allergy/AdvReac Type Severity Reaction Status Date / Time No Known Allergies Allergy Verified 03/24/25 12:04 Review of Systems Review of Systems: All systems reviewed & are unremarkable except as noted in HPI and below Constitutional: Constitutional: Reports no additional constitutional complaints Gastrointestinal: Gastrointestinal: Reports as per HPI, Reports change in bowel habits and Reports constipation Musculoskeletal: Musculoskeletal: Reports as per HPI Integumentary/Breasts: Skin/Breast: Reports system reviewed and no additional complaints, except as docu PMFSH Comments At the time of my signature, I reviewed and agree with the nursing past medical, surgical, social, and family history. There is no relevant family history pertinent to the patient complaint. Exam Const: General: cooperative, no acute distress, well developed, alert, ill appearing chronically and well nourished Nutritional Appearance: well nourished and obese Orientation/consciousness: patient oriented x3 Limitations: no limitations HENMT: Head: normal to inspection Eyes: General: appearance normal, both eyes and all related structures Alignment and Position: alignment normal Neck: Neck: normal visual inspection, full ROM, no lymphadenopathy and no meningeal signs Chest: Chest palpation & inspection: normal inspection of the chest Resp: Effort & Inspection: normal respiratory effort and able to speak in complete sentences Cardio: Rate: regular rate GI: GI Palp: No abdominal tenderness Auscultation: normal bowel sounds Skin: General skin exam: normal color and no rashes or lesions noted Neuro: Gait exam (Neuro): Assisted gait required walker Extrem: General: normal to inspection Psych: Appearance: grossly normal and well kempt Mental Status: mental status grossly normal Affect: normal affect Attitude: cooperative Course Course Level of Care: Express Care Visit Vital Signs Vital signs: Vital Signs Temperature 97.5 F L 03/24/25 12:01 Pulse Rate 75 03/24/25 12:01 Respiratory Rate 18 03/24/25 12:01 Blood Pressure 130/74 03/24/25 12:01 Pulse Oximetry 95 03/24/25 12:01 Oxygen Delivery Room Air 03/24/25 12:01 Temperature 97.5 F L 03/24/25 12:01 Pulse Rate 75 03/24/25 12:01 Respiratory Rate 18 03/24/25 12:01 Blood Pressure 130/74 03/24/25 12:01 Pulse Oximetry 95 03/24/25 12:01 Oxygen Delivery Room Air 03/24/25 12:01 Reviewed MDM - Back Pain/Injury MDM Narrative Medical decision making narrative: Patient presents with his daughter with concerns for constipation. Discussed increasing his MiraLax from half a dose to a full dose and adding Colace. Patient was able to eat breakfast without issue this morning. No abdominal pain on palpation. Patient has an appointment with primary care provider in 2 days Patient appropriate for outpatient treatment with close follow-up Discharge instructions reviewed with patient, as well as provided in writing per nursing staff. The instructions also include specific and strict return/GO TO THE ER as well as f/u information. All questions have been answered, and the patient deny any further questions with discharge and discharge plan. Some parts of this dictation were generated by voice recognition software and may contain typographical and/or grammatical inaccuracies. Differential Diagnosis Differential diagnosis: Likely other (Constipation, chronic back pain) Critical Care Time Critical Care Time Critical Care Time: No Discharge Plan Discharge Clinical Impression: Chronic back pain Constipation Qualifiers: Constipation type: unspecified constipation type Qualified Code(s): K59.00 - Constipation, unspecified Patient Disposition: Home Condition: Stable Instructions: Antibiotic Form, Constipation (ED) Additional Instructions: Increased 1 or 2 of the doses of MiraLax to a full dose. Give Colace capsule daily Follow-up with primary care provider as already scheduled For new or worsening symptoms go directly to the emergency Patient Language: Montenegrin Prescriptions: No Action atorvastatin 40 mg tablet tamsulosin 0.4 mg capsule PO cyclophosphamide 50 mg capsule PO Follow-up/Referrals: Jarvis,CAMRON Anderson [Primary Care Provider] - 3 Days Time of Disposition: 12:15
== END 2025-03-24 12:18 | disposition home or self-care (01) ==
PROVIDERS: Emergency Provider Nurse Practitioner; PCP Physician Assistant
DX: M54.9 Dorsalgia, unspecified (principal); G89.29 Other chronic pain; K59.00 Constipation, unspecified
CPT/HCPCS: 99212; G0463